=== PATIENT | female | born 1980 | race Caucasian/White ===

== ENCOUNTER 2017-02-07 01:40 | Emergency (ER) | payer BC ==
[~2017-02-07 01:40] MED LIST: ALBUTEROL MININEB NEB; ALBUTEROL17 GM INH; AMOXICILLIN PO; AMOXICILLIN500 M1; AMOXICILLIN500 M1 PO; B12 HEALTH1000 MCG/1; BACTRIM DS TABL1 TA1; BACTRIM DS TABL1 TA1 PO; BACTRIM PO; BENZONATATE PO; BIRTH CONTROL PILL; BROMPHED DM PO; CATAFLAM50 MG; CYMBALTA30 MG; DOXYCYCLINE150 MG PO; E.E.S. 400400 MG PO; FLEXERIL10 MG PO; FLONASE 0.05% N16 G1; FOLIC ACID1 MG; GUAIFENESIN400 MG PO; HYDROMET SYRUP480 ML PO; IBUPROFEN PO; IBUPROFEN800 MG PO; KEPPRA250 MG; KLONOPIN1 M1; LEVAQUIN PO; MEDROL4 MG/DOSE-; MEDROL4 MG/DOSE- PO; NAPROXEN PO; NEO SYNEPHRINE; NO MEDICATIONS; PERCOCET5/325 PO; PHENERGAN DM1 ML PO; PHENERGAN W/CO120 ML PO; PREDNISONE PO; PREDNISONE10 MG PO; PROBIOTIC1 EAC1; PROPRANOLOL HCL10 MG; PYRIDIUM PO; PYRIDIUM100 MG PO; ROBITUSSIN AC; SUDAFED30 M1 PO; ULTRAM; ZITHROMAX PO; ZITHROMAX1 G/PKT PO; ZONEGRAN100 MG PO; ZOVIA; ZYRTEC PO; ZYRTEC10 M2 PO; ZYRTEC10 M3
[2017-02-07] MEDS ORDERED: FLONASE 0.05% N16 G1 (01:51)
== END 2017-02-07 03:07 | disposition home or self-care (01) ==
LOC: SED 01:40
DX: G43.909 Migraine, unspecified, not intractable, without status migrainosus (principal); F17.200 Nicotine dependence, unspecified, uncomplicated; Z91.030 Bee allergy status; Z91.041 Radiographic dye allergy status
CPT/HCPCS: 96374; 96375; 99283; J0780; J1200; J1885

== ENCOUNTER 2017-03-04 20:02 | Emergency (ER) | payer BC ==
[2017-03-04] MEDS ORDERED: FLAGYL PO (20:14)
== END 2017-03-04 20:35 | disposition home or self-care (01) ==
LOC: SED 20:02
DX: R10.9 Unspecified abdominal pain (principal); G40.909 Epilepsy, unspecified, not intractable, without status epilepticus; F17.200 Nicotine dependence, unspecified, uncomplicated
CPT/HCPCS: 99283

== ENCOUNTER 2017-04-07 21:26 | Emergency (ER) | payer BC ==
--- NOTE | ~2017-04-07 | CR142 ---
[facility] A Service of [facility] & [facility] RADIOLOGY TEXT RESULTS PATIENT: BASILIA HARRISON LOCATION: SED : 84 UNIT #: [id number] AGE: [address]: Deyanira Jaquez SEX: F ORDER DR: [id number] [place] [id number] E MR#: [id number] Acc #: [id number] NAME: BASILIA HARRISON : 1980 SEX: F STUDY DATE/TIME: 04/07/2017 22:01 UNIT: SED ROOM: STUDY DESCRIPTION: CR Hand Min 3 Views Rt Attending Physician: Kalyn Alvarado Ordering Physician: Kalyn Alvarado MEDICAL IMAGING REPORT This report is preliminary unless electronic signature is present. EXAM Right hand series 04/07/2017 HISTORY 37-year-old female in the ED complaining of fourth and fifth metacarpal region pain after injury. Punched a wall tonight. TECHNIQUE 3-view right hand series. FINDINGS Examination is negative. No fracture, dislocation or other acute osseous abnormality is demonstrated. IMPRESSION Negative right hand series. Dictated by... Gato Viera M.D. THIS IS AN ELECTRONICALLY VERIFIED REPORT Gato Viera M.D. at 04/08/2017 4:55 PM JARODW/eryn TD: 04/08/2017 02:23 JOB #: [id number] MEDICAL IMAGING REPORT Page 1 of 1
[~2017-04-07 21:26] MED LIST changes: +FLAGYL PO
== END 2017-04-07 22:59 | disposition home or self-care (01) ==
LOC: SED 21:26
DX: S60.221A Contusion of right hand, initial encounter (principal); F17.210 Nicotine dependence, cigarettes, uncomplicated; W22.01XA Walked into wall, initial encounter; Y92.9 Unspecified place or not applicable; Z91.041 Radiographic dye allergy status; Z91.013 Allergy to seafood; Z91.018 Allergy to other foods; Z91.030 Bee allergy status
CPT/HCPCS: 73130; 99283

== ENCOUNTER 2017-04-16 16:36 | Emergency (ER) | payer BC ==
[~2017-04-16] VITALS: Ht 170.2 cm; Wt 59.4 kg
[2017-04-16] MEDS ORDERED: [UNRECOGNIZED DRUG - OTHER] (17:00)
[2017-04-16 17:26] LABS: URINE SOURCE CLEAN CATCH
[2017-04-16 17:29] LABS: URINE APPEARANCE HAZY; URINE BILIRUBIN NEG (NEG); URINE BLOOD 3+ (NEG); URINE COLOR YELLOW; URINE GLUCOSE NEG (NORM); URINE KETONE TRACE (NEG); URINE LEUKOCYTE ESTERASE 2+ (NEG); URINE NITRATE POS (NEG); URINE PH 5.5 (5-8); URINE PROTEIN 2+ (NEG); URINE SPECIFIC GRAVITY >=1.030 (1.003-1.035); URINE UROBILINOGEN 0.2 MG/DL (NORM)
[2017-04-16 17:30] LABS: MICRO INDICATED? YES
[2017-04-16 17:40] LABS: CULTURE INDICATED? YES; URINE BACTERIA 1+ (NEG); URINE MUCUS PRESENT; URINE RBC INNUM /[HPF] (0-2); URINE SQUAMOUS EPITHELIAL CELL MODERATE /[HPF]; URINE WBC INNUM /[HPF] (0-5)
[2017-04-19 16:31] LABS: CHLAMYDIA TRACH Not Detected (Not Detected); N GONOR Not Detected (Not Detected)
== END 2017-04-16 19:05 | disposition home or self-care (01) ==
LOC: SED 16:36
PROVIDERS: Physician Assistant; Physician Assistant Medical
DX: N30.90 Cystitis, unspecified without hematuria (principal); F41.0 Panic disorder [episodic paroxysmal anxiety]; F32.9 Major depressive disorder, single episode, unspecified; F17.200 Nicotine dependence, unspecified, uncomplicated; Z91.041 Radiographic dye allergy status
CPT/HCPCS: 81003; 84703; 87086; 87088; 87186; 87210; 87491; 87591; 87808; 87905; 96372; 99283; J0696